=== PATIENT | female | born 1985 | race Two or more races ===

== ENCOUNTER 2022-05-28 09:33 | Emergency (ER) | payer MEDICAID, OTHER ==
[~2022-05-28] VITALS: Ht 167.6 cm; Wt 105.0 kg
[2022-05-28 10:26] LABS: Urine Bacteria FEW /hpf (None Seen); Urine Mucus FEW (None Seen); Urine WBC 46 /hpf (0 - 5)
[2022-05-28 10:34] LABS: Urine Specific Gravity 1.025 (1.001-1.035)
[2022-05-28 10:35] LABS: Urine Blood Trace /uL (Negative)
[2022-05-28] MEDS ORDERED: NITR-87 PO (11:47)
[2022-05-28 13:40] VITALS: BP 138/86
== END 2022-05-28 13:59 | disposition home or self-care (01) ==
LOC: ER 09:33
DX: O20.0 Threatened abortion (principal); O23.41 Unspecified infection of urinary tract in pregnancy, first trimester; N39.0 Urinary tract infection, site not specified; Z88.0 Allergy status to penicillin; Z88.5 Allergy status to narcotic agent; Z3A.01 Less than 8 weeks gestation of pregnancy
CPT/HCPCS: 36415; 76801; 81001; 84702